=== PATIENT | male | born 1995 | race Caucasian/White ===

== ENCOUNTER 2023-12-05 23:10 | Inpatient (IN) | payer OTHER, SELFPAY ==
[2023-12-05 19:26] VITALS: BP 97/73
[2023-12-05 19:52] LABS: % Basophils 0.3 % (0-2); % Eosinophils 5.7 % (0-6); % Immature Granulocytes 0.3 % (0-0.5); % Lymphocytes 25.6 % (20.5-51.1); % Monocytes 8.1 % (1.7-9.3); Absolute Eosinophils 0.4 10^3/uL (0-0.7); Absolute Lymphocytes 1.8 10^3/uL (1.2-3.4); Absolute Monocytes 0.6 10^3/uL (0.1-0.6); Absolute Neutrophils 4.2 10^3/uL (1.4-6.5); Hematocrit 37.4 % (39.0-52.0); Hemoglobin 13.1 g/dL (13.0-18.0); Mean Corpuscular Hgb 29.7 pg (27.0-31.0); Mean Corpuscular Volume 84.8 fL (80.0-94.0); Mean Platelet Volume 9.5 fL (7.4-10.4); Nucleated Red Blood Cells % 0 % (-); Platelet Count 224 10^3/uL (130-400); Red Blood Cell Count 4.41 10^6/uL (4.70-6.10); Red Cell Dist. Width 12.4 % (11.5-14.5)
[2023-12-05 20:04] LABS: Lactic Acid 2.4 mmol/L (0.7-2.0)
[2023-12-05 20:16] LABS: ALT (SGPT) 15 U/L (0-50); AST (SGOT) 22 U/L (17-59); Alkaline Phosphatase 90 U/L (38-126); Blood Urea Nitrogen 7 mg/dl (9-20); Calcium 9.2 mg/dl (8.4-10.2); Carbon Dioxide 32 mmol/L (22-30); Chloride 94 mmol/L (98-107); Glucose 159 mg/dl (70-99); Potassium 3.8 mmol/L (3.5-5.1); Sodium 135 mmol/L (135-145); Total Bilirubin 0.5 mg/dl (0.2-1.3); Total Protein 6.5 g/dl (6.3-8.2); eGFR > 60.00
[2023-12-05 20:17] LABS: Troponin I < 0.012 ng/ml
[2023-12-05 20:41] VITALS: BMI 20.3
--- NOTE | 2023-12-05 20:42 | EDRN ---
Pt says he has a wound on his left leg that started last night or the day before. Pt says the wound is from his drug use - pt smokes oxycontin then scratches his leg and says it is numb so he cannot tell how much he is scratching it which causes
wounds. Last used oxycontin this morning. Pt also uses PCP and heroin - last used both 'weeks ago.' Pt says he started with cp and sob this morning while he was watching TV after using oxycontin. Pt says cp comes and goes as well as the sob. Pt
has 'minor' abd pain when he stands up and moves around. No n/v, fever/chills/cough, urinary symptoms. Pt declines help with drug addiction, only here to have wound examined.
[2023-12-05 20:53] VITALS: BP 98/64
[2023-12-05 21:00] VITALS: BP 108/63
--- NOTE | 2023-12-05 21:00 | EDRN ---
Called pharmacy for invanz
--- NOTE | 2023-12-05 21:09 | ED.GENMED ---
History of Present Illness
General
Chief Complaint: Swelling
Source: patient
Exam Limitations: none
Time Seen by Provider: 12/05/23 20:51
Nursing documentation reviewed up to this point in time: agreed with
Travel History
Have you had any contact with someone who has COVID-19?: No
Do you have any symptoms of coronavirus? Fever > 100 degrees, chills, cough, shortness of breath, sore throat, loss of taste or smell, muscle aches, or headache?: No
History of Present Illness
History of Present Illness:
Patient with history of chronic opioid use and previous skin infection, presents to ED secondary to 1 week history of recurrent left lower leg redness/swelling/pain, along with decreased appetite. Denies fever or chills. Denies nausea or vomiting.
Denies diarrhea. Denies headache. Denies dizziness. Denies direct trauma.
Past History
Past History
ED Past Medical History: Psychiatric (Bipolar disorder, alcohol abuse, Depression, Anxiety) and Other (Polysubstance drug abuse)
ED Past Surgical History: Other (myringotomy tubes)
Social History
Tobacco: Former smoker
Alcohol: Former
Drug: Narcotics and Other (Amphetamines, fentanyl, PCP)
Personal: Single
Living: with family
Employment: Not employed
Family History
Family History: Other (Psychiatric illness.)
Review of Systems
Review of Systems
All Other Systems: ROS reviewed and negative except as documented in HPI and ROS
Constitutional: Reports no symptoms
EENT: Reports no symptoms
Respiratory: Reports no symptoms
Cardiac: Reports no symptoms
ABD/GI: Reports no symptoms
: Reports no symptoms
Musculoskeletal: Reports no symptoms
Skin: Reports other (Leg redness with rash)
Neurological: Reports no symptoms; Denies dizzy or headache
Phy Exam
Physical Exam
Physical Exam:
Physical Exam
General: mild distress, not acutely ill. afebrile
Head: nc/at. eomi
Neck: supple. no meningeal signs.
Heart: tachycardic, no murmur. equal radial pulses.
Lungs: no acute respiratory distress. clear bilaterally
Abdomen: normal bowel sounds. not tender.
Neuro: alert and oriented. no focal neurological deficits
Skin: LLE: multiple ulcerated lesions noted with surrounding erythema/warm, with linear streaking upto thigh.
Psychiatric: well kept. interactive and cooperative
Extremities: no edema. no calf tenderness.
Course
Orders/Labs/Results
Orders:
Orders
12/05/23 19:29
Electrocardiogram (*1) Urgent
Reason for Study: Tachycardia
EKG- Treatment ONCE
12/05/23 19:38
Complete Blood Count/With Diff Urgent
Lactic Acid Urgent
Troponin I Urgent
12/05/23 19:39
Comprehensive Metabolic Panel Urgent
Blood Culture Urgent
ROMMEL Source: Blood/Venous
Specimen Description:
12/05/23 20:55
Piperacillin/Tazo 3.375 Gram [Zosyn] 3.375 gram in 50 ml IV NOW
12/05/23 20:56
0.9% Sodium Chloride 1000 ml [Nss] 1,000 ml IV BOLUS
12/05/23 21:10
Blood Culture Urgent
ROMMEL Source: Blood/Venous
Specimen Description:
12/05/23 21:15
Ertapenem [Invanz] 1,000 mg 0.9% Sodium Chloride [Nss] 50 ml IV ONCE
12/05/23 21:36
Admit/Transfer Patient As Directed
Co-Sign Provider:
Level of Care: Inpatient admission
Assign to:: Telemetry
Physician / Group: Marcus juan
Diagnosis: sepsis
Reason for Telemetry: Other
Other Reason for Telemetry: sepsis
Date to Stop Telemetry: 12/07/23
Time to Stop Telemetry: 11:00
Reason for Hospitalization: sepsis
Expected length of stay greater than two midnights?: Yes
ELOS- Estimated Length of Stay in days: 3
I certify the patient meets the requirements for IP care: Yes
12/05/23 21:37
Code Status As Directed
Resuscitation Status: Full Code
12/06/23 00:05
0.9% Sodium Chloride 1000 ml [Nss] 1,000 ml IV 125 mls/hr
Acetaminophen [Tylenol] 650 mg PO Q4HPRN PRN
Buprenorphine [Subutex] 8 mg SL PRN PRN
Linezolid 600 mg/300 ml [Zyvox 600 mg] 300 ml IV Q12H
Nicotine [Nicoderm Transdermal] 21 mg TRANSDERM DAILY
Tizanidine [Zanaflex] 2 mg PO Q6HPRN PRN
12/06/23 00:05
Electrocardiogram (*1) Routine
Reason for Study: QTc Monitoring
Comment: if not already done in ED
Consult Notification Routine
Specialty to Notify: Infectious Disease
Date consulting provider notified: 12/06/23
Time consulting provider notified: 06:58
Notified:: Provider
Comment: TT 7am
INFECTIOUS DISEASE CONSULT Routine
Consulting Provider: Jai Ferris
Was physician already notified: No
Reason for consult: wound infection from drug abuse
Activity As Directed
Activity Level: Out of Bed-Early Mobility
Clinical Opioid Withdrawal Scale (COWS) .PRN
Intake/ Output As Directed
Frequency: Per unit guidelines
Vital Signs As Directed
Frequency: Per unit guidelines
DX Deep Vein Thrombosis Video Routine
12/06/23 00:43
Lactic Acid Q4H
12/06/23 03:27
Fentanyl, Urine Urgent
12/06/23 05:45
Complete Blood Count/No Diff IN AM
12/06/23 Breakfast
Regular
At Your Request: Full Participation
Piperacillin/Tazo 3.375 Gram [Zosyn] 3.375 gram in 50 ml IV Q6H
12/06/23 08:00
Buprenorphine [Subutex] 4 mg SL ONCE PRN PRN
Buprenorphine [Subutex] See Dose Instructions SL ONCE ONE
12/06/23 18:00
Enoxaparin Sodium [Lovenox] 40 mg SC QPM
12/07/23 06:00
Basic Metabolic Panel IN AM
Complete Blood Count/No Diff IN AM
12/07/23 08:00
Buprenorphine [Subutex] See Dose Instructions SL DAILY
12/07/23 11:00
DC Protocol for Telemetry ONCE
12/08/23 06:00
Basic Metabolic Panel IN AM
Complete Blood Count/No Diff IN AM
12/09/23 06:00
Basic Metabolic Panel IN AM
Complete Blood Count/No Diff IN AM
12/10/23 06:00
Basic Metabolic Panel IN AM
Complete Blood Count/No Diff IN AM
Abnormal Lab Results
12/05/23 12/05/23
19:38 19:39
RBC 4.41 L 10^6/uL
(4.70-6.10)
Hct 37.4 L %
(39.0-52.0)
Chloride 94 L mmol/L
(98-107)
Carbon Dioxide 32 H mmol/L
(22-30)
BUN 7 L mg/dl
(9-20)
Glucose 159 H mg/dl
(70-99)
Lactic Acid 2.4 H mmol/L
(0.7-2.0)
12/05/23 19:38
12/05/23 19:39
Vital Signs
Initial and Last Documented VS:
Initial Vital Signs
Temp
97.7 F
02/16/24 19:25
Last Documented Vital Signs
Temp Pulse Resp BP Pulse Ox
98.1 F 116 18 115/63 99
12/06/23 07:55 12/06/23 07:55 12/06/23 07:55 12/06/23 07:55 12/06/23 07:55
MDM/Problems Addressed
MDM/Problems Addressed:
History and exam concerning for left leg cellulitis, with concern for development of bacteremia, with history of drug abuse. Patient will be admitted for IV antibiotics and IV fluids.
Blood culture pending. Invanz administered secondary to allergy to vancomycin.
*Critical Care Note
Total Time (30-74mins, 75-104mins- exclusive of procedures): Not Applicable
ED Attending Note
-
Portions of this chart may have been created with voice recognition software.� Occasional wrong word or��sound alike� substitutions may have occurred due to the inherent limitations of voice recognition software.
Discharge Plan
Departure
Patient Disposition: Admit
Date of Disposition: 12/05/23
Time of Disposition: 21:12
Admit to: Telemetry
Presentation/result/management discussed w/ accepting MD/DO: Hospitalist
Discharge Problem:
Cellulitis of leg
Interventions
Interventions:
*Risk Screen - Suicide Last Done: 12/06/23 00:48
*General Assessment Last Done: 12/05/23 19:25
*Neglect/Abuse Screening Last Done: 12/05/23 20:41
ED- Fall Risk Assessment Last Done: 12/05/23 23:42
*ED COVID-19 Vaccine History Last Done: 12/05/23 19:25
*Nursing Disposition Last Done: 12/05/23 23:42
ED- Cardiac Assessment Last Done: 12/05/23 20:53
ED- Pulmonary Assessment Last Done: 12/05/23 20:53
ED-Skin Assessment Last Done: 12/05/23 20:53
Discharge Date and Time
Discharge Date/Time: 12/05/23 23:42
[2023-12-05] MEDS: NSS 1000 IV (21:10)
--- NOTE | 2023-12-05 21:13 | HPS.HSE ---
Addendum entered and electronically signed by Marcus Castañeda DO 12/06/23 01:12:
I saw and examined the patient.
The TABLEAU DEVELOPER's note was reviewed and I agree with the note.
28[facility]/Anxiety/Depression, Polysubstance abuse presents to ER with 1 week of left leg swelling/redness/pain. Pt also reports heart palpitation. Denies IVDA. Denies past history of endocarditis or bacteremia. Hx MRSA wounds in past
noted. He adamantly denies any interest in quitting drugs with mother present at bedside. Reports snorting/skin popping PCP, Fentanyl, GHB, Benzodiazepines. Denies fever, chills, dizziness/LH, wheezing, cough, abd pain, n/v/d/c.
Physical Exam
General:�Chronically ill appearing. No apparent distress.
HEENT:�Normocephalic, Dry MM, and Atraumatic
Respiratory:�Clear, no w/r/r.
Cardiac:�+S1/S2, no m/r/g
GI:�Soft, Non Tender, Non Distended and Normal Bowel Sounds; No Organomegaly
Skin:�Right upper arm wound. RLE wound. LLE erythematous wound with TTP.
Neuro:�AO x 3 and Nonfocal/grossly intact
Psych:�Anxious
Sepsis 2/2 LLE Cellulitis
- +tachycardia, Hypotension (BP 95/62), LA 2.4. Tmax 98.8
- S/p 1LNS in ER. Continue fluids per sepsis protocol. Trend LA
- Vancomycin allergy noted
- S/p Ertapenem/Zosyn in ER. Will change to linezolid and zosyn. Hx MRSA wounds in past. No prior known bacteremia/endocarditis
- Follow up Blood Cultures
- Consult ID and Wound Care
Polysubstance Abuse
- Reports snorting/skin popping PCP, Fentanyl, GHB, Benzodiazepines
- Urine Drug Screen pending
- opiates protocol. May require prn benzos, monitor closely with COWS
- Pt is adamantly against quitting
Tobacco Abuse
- Nicotine patch ordered
Hx Bipolar/depression/anxiety - not on any prescribed meds
�
Original Note:
Family Physician
-
Family Physician:
Chief Complaint
-
left LE cellulitis
History of Present Illness
Patient with history of chronic opioid use and previous skin infection, presents to ED secondary to 1 week history of recurrent left lower leg redness/swelling/pain, along with decreased appetite.� Denies fever or chills.� Denies nausea or
vomiting.� Denies diarrhea.� Denies headache.� Denies dizziness.� Denies direct trauma. as per mom, he felt palpitation. he snorts opoids, his last dose was this morning. he also uses meth, he used it in the morning.
patient received iv ertapenem and Zosyn in ER. admitting for further management.
Medical History
Past Medical History
Past Medical History: Reports Other
Additional Past Medical History:
bipolar disorder
depression
alcohol abuse
anxiety
polysubstance abuse
Past Surgical History: Reports Other
Additional Past Surgical History:
myringotomy
Social History
Tobacco: Smoker (1 pack a day)
Alcohol: None
Drug: Other (snorts opoids, meth)
Living: With Family
Family History
Family History: Not pertinent
Allergies / Home Medications
Allergies reflects when Allergies were last updated in [employer] ([employer]).
Home Medications with original date entered in [employer] ([employer])
Allergy/Medication List:
Allergies
Allergy/AdvReac Type Severity Reaction Status Date / Time
vancomycin Allergy Itching Verified 12/05/23 19:25
Home Medications
No Meds [No Current Medications] 12/05/23
Review of Systems
-
Constitutional: Reports No Symptoms
EENT: Reports No Symptoms
Respiratory: Reports No Symptoms
Cardiac: Reports No Symptoms
Abdomen/GI: Reports No Symptoms
: Reports No Symptoms
Musculoskeletal: Reports No Symptoms
Skin: Reports Other (left LE redness, swollen, tender, scabx, multiple wounds )
Neurological: Reports No Symptoms
Endocrine: Reports No Symptoms
Hematologic/Lymphatic: Reports No Symptoms
Psych: Reports No Symptoms
Physical Exam
Vital Signs
Vital Signs
Temp Pulse Resp BP Pulse Ox
97.7 F 103 12 108/63 98
12/05/23 19:25 12/05/23 21:00 12/05/23 20:53 12/05/23 21:00 12/05/23 19:26
Physical Exam
General: Well Developed, Well Nourished and No Apparent Distress
HEENT: NormoCephalic, Moist mucous membranes and Atraumatic
Respiratory: Clear
Cardiac: S1/S2 and Regular Rhythm; No Murmur or Rub
GI: Soft, Non Tender, Non Distended and Normal Bowel Sounds; No Organomegaly
Rectal: Deferred by Provider
Musculoskeletal: No Clubbing, No Cyanosis and No Edema
Skin: Rash and Other (left LE red, swollen, tender and wounds, multiple wounds generalized body)
Neuro: AO x 3 and Nonfocal/grossly intact
Psych: Calm
Laboratory Results
-
12/05/23 19:38
12/05/23 19:39
Laboratory Results
Lactic Acid 2.4 mmol/L (0.7-2.0) H 12/05/23 19:38
Total Bilirubin 0.5 mg/dl (0.2-1.3) 12/05/23 19:39
AST 22 U/L (17-59) 12/05/23 19:39
ALT 15 U/L (0-50) 12/05/23 19:39
Alkaline Phosphatase 90 U/L (38-126) 12/05/23 19:39
Troponin I < 0.012 ng/ml 12/05/23 19:38
Data Reviewed
-
Lab Data: Labs Reviewed by me
Impression/Plan
-
#LLE cellulitis from opioid use
-sepsis as evident by lactic 2.4, hypotension, tachycardia
-fluids continued
-iv linezolid and Zosyn
-blood culture sent from ER
-ID consulted
-Tylenol prn for fever, and pain
-trend lactic
#opioid dependence
-opiates protocol
#hxt of Bipolar/depression/anxiety
-not on meds
#Nicotine dependence
-nicotine patch
-encouraged smoking cessation
#DVT prophylaxis
-Lovenox
#CODE status
-full code
[2023-12-05] MEDS: INVANZ 60 MG IV (21:35)
[2023-12-05 22:00] VITALS: BP 95/62
[2023-12-05 23:00] VITALS: BP 106/61
[2023-12-06] VITALS (7 sets, daily range): BP systolic 94–117; BP diastolic 54–72; BMI 19.8
[2023-12-06] MEDS: NICODERM TRANSDERMAL 21 MG TRANSDERM ×2 (00:32→08:09)
[2023-12-06] MEDS: NSS 1000 IV ×3 (00:32→18:47)
[2023-12-06] MEDS: ZYVOX 600 MG 300 IV (01:21)
[2023-12-06 02:04] LABS: Lactic Acid 0.8 mmol/L (0.7-2.0)
[2023-12-06 03:48] LABS: Fentanyl, Urine Negative (Negative)
[2023-12-06] MEDS: ZOSYN 50 IV (05:58)
[2023-12-06 06:31] LABS: Hematocrit 32.2 % (39.0-52.0); Hemoglobin 11.2 g/dL (13.0-18.0); Mean Corp Hgb Conc. 34.8 g/dL (33.0-37.0); Mean Corpuscular Hgb 30.2 pg (27.0-31.0); Mean Corpuscular Volume 86.8 fL (80.0-94.0); Mean Platelet Volume 10.1 fL (7.4-10.4); Platelet Count 194 10^3/uL (130-400); Red Blood Cell Count 3.71 10^6/uL (4.70-6.10); Red Cell Dist. Width 12.4 % (11.5-14.5); White Blood Cell Count 6.1 10^3/uL (4.8-10.8)
[2023-12-06 06:51] LABS: Amphetamines Positive (Negative); Barbiturates Negative (Negative); Benzodiazepines Negative (Negative); Buprenorphine Negative (Negative); Cocaine Negative (Negative); Marijuana Negative (Negative); Methadone Negative (Negative); Methamphetamines Positive (Negative); Opiates Positive (Negative); Phencyclidine Negative (Negative); Tricyclic Antidepressants Negative (Negative)
[2023-12-06 06:56] LABS: ALT (SGPT) 13 U/L (0-50); AST (SGOT) 20 U/L (17-59); Albumin 3.2 g/dl (3.5-5.0); Alkaline Phosphatase 91 U/L (38-126); Blood Urea Nitrogen 4 mg/dl (9-20); Calcium 8.2 mg/dl (8.4-10.2); Carbon Dioxide 26 mmol/L (22-30); Chloride 105 mmol/L (98-107); Creatine Phosphokinase 60 U/L (55-170); Direct Bilirubin 0.4 mg/dl (0.0-0.4); Estimated Creatinine Clearance > 125 ml/min; Glucose 98 mg/dl (70-99); Potassium 3.7 mmol/L (3.5-5.1); Sodium 135 mmol/L (135-145); Total Bilirubin 0.4 mg/dl (0.2-1.3); Total Protein 5.4 g/dl (6.3-8.2); eGFR > 60.00
--- NOTE | 2023-12-06 09:42 | CON.ID ---
Consultation
-
Date/Time Consultation Requested: 12/06/2023 00:05
Date/Time Consultation Performed: 12/06/2023 09:16
Requesting Provider: Cynthia Richards
Performing Provider: Dr. Ferris
Reason for Consultation: Left lower extremity cellulitis
Chief Complaint / Past History
History of Present Illness
Jersey Schwartz is a 28-year-old male with a significant past medical history of substance abuse and bipolar disease being evaluated today. She was seen regarding left lower extremity cellulitis. History is obtained from chart review, along with
patient interview. Patient reports that approximately 1 week ago he began to have erythema and swelling of his left lower extremity in an area that he chronically scratches.. Time he was had an enlarging wound, and some leg swelling and erythema.
Ultimately the pain progressed to the point that he sought further medical care. [facility].
During this period of time he denies any fevers or chills. Headache, chest pain or shortness of breath. He denies any abdominal pain, nausea or vomiting. He notes no groin pain or swelling. Erythema is limited to the distal leg and the calf area.
He denies any IVDA, noting that he limits his drug use to smoking. He reports negative HIV testing in the past, but consents to testing today.
Past History
Additional Past Medical History:
Bipolar disease
Substance abuse
Anxiety/depression
Additional Past Surgical History:
Myringotomy tubes
Allergy History:
vancomycin Allergy (Verified 12/05/23 19:25)
Itching
Medications Reviewed: Yes
Current Antibiotics:
Zyvox
Zosyn
Social History
Tobacco: Former Smoker
Alcohol: Former
Drug: Other (Amphetamine, fentanyl, PCP)
Personal: Single
Living: With Family
Family History
Family History: Not Pertinent
Review of Systems
Vital Signs
Temp Pulse Resp BP Pulse Ox
98.1 F 116 18 115/63 99
02/17/24 07:55 12/06/23 07:55 12/06/23 07:55 12/06/23 07:55 12/06/23 07:55
Physical Exam
Physical Exam
Constitutional: No Acute Distress, Comfortable and Non-toxic
Eyes: No Conjunctival Hemorrhage and Sclera Anicteric
Cardiovascular: S1/S2; Negative S3/S4
Pulmonary: Clear; Negative Wheezes, Rales or Rhonchi
Gastrointestinal: Soft, Non Tender and Non Distended
Extremities: Edema (Left lower extremity) and Erythema (Left lower extremity); Negative Venous Insufficiency
Wound: Other (Left mid calf area with wound with dry crusting. Surrounding pustules noted on the skin. Mild erythema. Positive tenderness.)
Neurological: Awake and Alert
Psychological: Calm
Lab / Diagnostic Study Results
12/06/23 05:45
12/06/23 05:45
Abs Immat Gran (auto) 0.0 10^3/uL (0-0.05) 12/05/23 19:38
Absolute Neuts (auto) 4.2 10^3/uL (1.4-6.5) 12/05/23 19:38
Absolute Lymphs (auto) 1.8 10^3/uL (1.2-3.4) 12/05/23 19:38
Absolute Monos (auto) 0.6 10^3/uL (0.1-0.6) 12/05/23 19:38
Absolute Basos (auto) 0.0 10^3/uL (0-0.2) 12/05/23 19:38
Immature Gran % 0.3 % (0-0.5) 12/05/23 19:38
Neutrophils % 60.0 % (42.2-75.2) 12/05/23 19:38
Lymphocytes % 25.6 % (20.5-51.1) 12/05/23 19:38
Monocytes % 8.1 % (1.7-9.3) 12/05/23 19:38
Eosinophils % 5.7 % (0-6) 12/05/23 19:38
Basophils % 0.3 % (0-2) 12/05/23 19:38
Lactic Acid Cancelled 12/06/23 04:05
Microbiology Results
Micro:
12/06/23 03:27 MRSA Screen - Pending
Nose
12/05/23 21:10 Blood Culture - Pending
Blood/Venous
12/05/23 19:39 Blood Culture - Pending
Blood/Venous
Assessment / Plan
Left lower extremity cellulitis
Left lower extremity wound
Lactic acidosis; improved
Polysubstance abuse (opiates, oxycodone, amphetamine)
Bipolar disease
Anxiety/depression
Recommendations:
Continue antibiotic coverage. Transition linezolid to the oral route.
Change Zosyn to cefazolin 2 g IV every 8 hours.
I have cultured several of the pustules; await results.
Local care to the leg wound.
--- NOTE | 2023-12-06 10:57 | W.PN.HOSP.TC ---
Today's Communication/Plan
-
see bold
Assessment / Plan
Assessment / Plan
Gen: NAD, Awake and alert, NCAT
Eyes: EOMI, PERRLA, no scleral icterus.
Neck: supple.
CV: RRR, +S1/S2, no m/r/g.
Resp: CTAB, no rales, wheezes, or rhonchi.
Abd: +BS, soft, NT, ND
Skin: L leg cellulitis, L leg with scabs with some contained puss.
Neuro: CN 2-12 intact, non-focal.
Psych: Normal mood and affect.
Sepsis due to LLE Cellulitis
-cont IVFs
-cont linezolid and zosyn. h/o MRSA wounds in past. No prior known bacteremia/endocarditis.
-follow BCxs/WCx
-c/s ID and Wound Care
Polysubstance Abuse
- Reports snorting/skin popping PCP, Fentanyl, GHB, Benzodiazepines
- Urine Drug Screen with opioids, amphetamines
- cont COWS protocol (subutex)
- Pt is adamantly against quitting
Tobacco Abuse
- Nicotine patch ordered
Hx Bipolar/depression/anxiety -�not on any prescribed meds
Pt's parents updated at bedside.
FULL/Lovenox
Anticipated Discharge: 24 - 48 hours
Subjective/Interval History
-
Date of Service: December 06, 2023
Objective Data
-
Labs:
Laboratory Results
12/06/23
05:45
WBC 6.1
Hgb 11.2 L
Hct 32.2 L
Plt Count 194
Sodium 135
Potassium 3.7
Chloride 105
Carbon Dioxide 26
BUN 4 L
Creatinine 0.6 L
Glucose 98
Calcium 8.2 L
Total Bilirubin 0.4
AST 20
ALT 13
Alkaline Phosphatase 91
Vital Signs:
Vital Signs
Temp Pulse Resp BP Pulse Ox
98.1 F 116 18 115/63 99
12/06/23 07:55 12/06/23 07:55 12/06/23 07:55 12/06/23 07:55 12/06/23 07:55
I&O
12/05/23 12/06/23 12/07/23
06:59 06:59 06:59
Output Total 200 / 200
Balance -200 / -200
[2023-12-06] MEDS: ANCEF 10 IV ×2 (12:19→20:03)
--- NOTE | 2023-12-06 15:04 | CM ---
Patient seen bedside, initial assessment completed. Patient reports he resides with family in a single story home, denies DME, VN, or SNF. Patient reports he has no PCP, confirms [facility] in [place]. CM will continue to follow for
discharge planning needs.
Plan; home with family, no needs.
[2023-12-06] MEDS: LOVENOX 40 MG SC (18:47)
[2023-12-06] MEDS: ZYVOX 600 MG PO (20:03)
[2023-12-06] MEDS: SUBUTEX 8 MG SL (20:04)
[2023-12-07] MEDS: NSS 1000 IV (01:50)
[2023-12-07 03:55] VITALS: BP 114/77
[2023-12-07] MEDS: ANCEF 10 IV ×3 (04:28→20:56)
[2023-12-07 07:35] VITALS: BP 109/75
[2023-12-07 07:53] LABS: Hematocrit 33.1 % (39.0-52.0); Hemoglobin 11.4 g/dL (13.0-18.0); Mean Corp Hgb Conc. 34.4 g/dL (33.0-37.0); Mean Corpuscular Hgb 29.9 pg (27.0-31.0); Mean Corpuscular Volume 86.9 fL (80.0-94.0); Mean Platelet Volume 10.1 fL (7.4-10.4); Platelet Count 210 10^3/uL (130-400); Red Blood Cell Count 3.81 10^6/uL (4.70-6.10); Red Cell Dist. Width 12.7 % (11.5-14.5); White Blood Cell Count 5.1 10^3/uL (4.8-10.8)
[2023-12-07 08:05] LABS: Blood Urea Nitrogen 6 mg/dl (9-20); Calcium 8.3 mg/dl (8.4-10.2); Carbon Dioxide 26 mmol/L (22-30); Chloride 108 mmol/L (98-107); Estimated Creatinine Clearance > 125 ml/min; Glucose 81 mg/dl (70-99); Potassium 4.4 mmol/L (3.5-5.1); Sodium 138 mmol/L (135-145); eGFR > 60.00
[2023-12-07] MEDS: ZYVOX 600 MG PO ×2 (09:28→20:58)
[2023-12-07] MEDS: NICODERM TRANSDERMAL 21 MG TRANSDERM (09:28)
[2023-12-07] MEDS: SUBUTEX 8 MG SL (09:41)
[2023-12-07 11:20] VITALS: BP 114/74
--- NOTE | 2023-12-07 11:48 | W.PN.HOSP.TC ---
Today's Communication/Plan
-
Cont abx
ID Recs
await culture
Assessment / Plan
Assessment / Plan
Gen: NAD, Awake and alert, NCAT
Eyes: EOMI, PERRLA, no scleral icterus.
Neck: supple.
CV: RRR, +S1/S2, no m/r/g.
Resp: CTAB, no rales, wheezes, or rhonchi.
Abd: +BS, soft, NT, ND
Skin: L leg cellulitis, L leg with scabs with some contained puss.
Neuro: CN 2-12 intact, non-focal.
Psych: Normal mood and affect.
Sepsis due to LLE Cellulitis
-cont IVFs
-cont linezolid . Zosyn stopped and switched to cefazolin. h/o MRSA wounds in past. No prior known bacteremia/endocarditis.
-follow BCxs/WCx
-wound cx prelim with staph aureus
-c/s ID and Wound Care
Polysubstance Abuse
- Reports snorting/skin popping PCP, Fentanyl, GHB, Benzodiazepines
- Urine Drug Screen with opioids, amphetamines
- cont COWS protocol (subutex)
- Pt is adamantly against quitting
- Tolerated diet. Stop IVF.
Tobacco Abuse
- Nicotine patch ordered
Hx Bipolar/depression/anxiety -�not on any prescribed meds
Pt's parents updated at bedside.
FULL/Lovenox
Anticipated Discharge: > 48 hours
Subjective/Interval History
-
Date of Service: December 07, 2023
States improvement in erythema
tolerating diet
Objective Data
-
Labs:
Laboratory Results
12/07/23
06:41
WBC 5.1
Hgb 11.4 L
Hct 33.1 L
Plt Count 210
Sodium 138
Potassium 4.4
Chloride 108 H
Carbon Dioxide 26
BUN 6 L
Creatinine 0.6 L
Glucose 81
Calcium 8.3 L
Vital Signs:
Vital Signs
Temp Pulse Resp BP Pulse Ox
98 F 83 14 109/75 99
12/07/23 07:35 12/07/23 07:35 12/07/23 07:35 12/07/23 07:35 12/07/23 07:35
I&O
12/06/23 12/07/23 12/08/23
06:59 06:59 06:59
Intake Total 3730 / 3730
Output Total 200 / 200 3700 / 3700 500 / 500
Balance -200 / -200 30 / 30 -500 / -500
[2023-12-07] MEDS: SUBUTEX 4 MG SL (12:24)
[2023-12-07 15:35] VITALS: BP 114/65
--- NOTE | 2023-12-07 16:20 | CM ---
CM reviewed chart. Per Hospitalist note, continue antibiotics, ID and Wound Care consulted. CM will continue to follow for discharge planning needs.
Plan; home with family, watch for possible wound care needs.
[2023-12-07] MEDS: LOVENOX 40 MG SC (17:14)
[2023-12-07 20:18] VITALS: BP 131/77
[2023-12-07] MEDS: FLUSH (NSS) 2 FLUSH IV (20:57)
[2023-12-07] MEDS: BENADRYL 25 MG PO (23:16)
[2023-12-08 00:02] VITALS: BP 94/53
[2023-12-08 04:20] VITALS: BP 107/71
[2023-12-08] MEDS: FLUSH (NSS) 2 FLUSH IV (05:16)
[2023-12-08] MEDS: ANCEF 10 IV (05:16)
[2023-12-08 07:00] VITALS: BP 95/62
[2023-12-08 07:37] LABS: Hematocrit 35.3 % (39.0-52.0); Hemoglobin 12.6 g/dL (13.0-18.0); Mean Corp Hgb Conc. 35.7 g/dL (33.0-37.0); Mean Corpuscular Hgb 30.1 pg (27.0-31.0); Mean Corpuscular Volume 84.4 fL (80.0-94.0); Mean Platelet Volume 9.5 fL (7.4-10.4); Platelet Count 245 10^3/uL (130-400); Red Blood Cell Count 4.18 10^6/uL (4.70-6.10); Red Cell Dist. Width 12.5 % (11.5-14.5); White Blood Cell Count 4.8 10^3/uL (4.8-10.8)
[2023-12-08 08:59] LABS: Blood Urea Nitrogen 15 mg/dl (9-20); Calcium 8.9 mg/dl (8.4-10.2); Carbon Dioxide 28 mmol/L (22-30); Chloride 102 mmol/L (98-107); Estimated Creatinine Clearance > 125 ml/min; Glucose 87 mg/dl (70-99); Potassium 4.4 mmol/L (3.5-5.1); Sodium 139 mmol/L (135-145); eGFR > 60.00
[2023-12-08] MEDS: SUBUTEX 12 MG SL (10:22)
[2023-12-08] MEDS: ZYVOX 600 MG PO (10:22)
[2023-12-08] MEDS: NICODERM TRANSDERMAL 21 MG TRANSDERM (10:23)
--- NOTE | 2023-12-08 10:54 | WOUNDNOTE ---
[facility] RN note: Patient admitted with LLE cellulitis
See H&P for complete history-
PMH: Anxiety, depression, substance abuse,
Wound Location and type/assessment: Patient admitted with: LLE full-thickness excoriation from scratching. Patient reports scratching arms, legs, head and back when itchy from substance withdrawn. Denies using needles. LLE wound with small amount
of old drainage, yellow slough that was easily removed after cleaning. Patient reports this wound was a result from scratching. He has multiple scabbed areas on scalp, UE, LE and back. His right upper arm/shoulder also has an open abrasion from
scratching. Sacrum and heels intact.
Appetite: Good
Pressure redistribution devices in place: Versa Care Air, patient changes positions in bed
Plan: LLE wound cleaned with Vashe and medihoney applied. Silicone foam dressing maintained to right upper arm. Instructed patient on use of Aquaphor for scabbed areas. Will confirm orders with hospitalist and update nurse.
Updated care plan and will follow as needed. Patient agreeable to follow up at [facility] after discharge.
Recommend follow up at wound care center upon discharge.
[2023-12-08 11:00] VITALS: BP 111/75
--- NOTE | 2023-12-08 11:23 | W.PN.HOSP.TC ---
Addendum entered and electronically signed by Leroy Heck MD 12/08/23 12:47:
Case discussed with Dr. Ferris. Wound culture with MSSA. Patient to be discharged on 5 further days of Keflex.
Total time spent on d/c = 31 min. This included today's physical exam, progress note, review of laboratory and diagnostic data, preparation of discharge documents and prescriptions, and discussions about the pt's hospital course and discharge plan
with the patient and other medical accounting clerk involved in the patient's care.
Original Note:
Today's Communication/Plan
-
see bold
Assessment / Plan
Assessment / Plan
Gen: NAD, Awake and alert, NCAT
Eyes: EOMI, PERRLA, no scleral icterus.
Neck: supple.
CV: RRR, +S1/S2, no m/r/g.
Resp: CTAB, no rales, wheezes, or rhonchi.
Abd: +BS, soft, NT, ND
Skin: C/D/I dressing on medial distal leg. Otherwise L leg cellulitis has resolved, scabs on both LEs.
Neuro: CN 2-12 intact, non-focal.
Psych: Normal mood and affect.
12/05/23 21:10 Blood/Venous Blood Culture - Preliminary
No Growth in 48 hours- Final report to follow
12/05/23 19:39 Blood/Venous Blood Culture - Preliminary
No Growth in 48 hours- Final report to follow
12/06/23 09:54 Leg - Left Wound Culture - Preliminary
Staphylococcus aureus
12/06/23 09:54 Leg - Left Gram Stain - Preliminary
12/06/23 03:27 Nose MRSA Screen - Final
No Methicillin Resistant Staphylococcus aureus isolated.
Sepsis due to LLE Cellulitis:
-cont linezolid/cefazolin as per ID. h/o MRSA wounds in past. No prior known bacteremia/endocarditis.
-follow BCxs/WCx (WCx prelim staph aureus)
Polysubstance Abuse
- Reports snorting/skin popping PCP, Fentanyl, GHB, Benzodiazepines
- Urine Drug Screen with opioids, amphetamines
- cont COWS protocol (subutex)
- Pt is adamantly against quitting
Tobacco Abuse
- Nicotine patch ordered
Hx Bipolar/depression/anxiety -�not on any prescribed meds
Pt's parents updated at bedside.
FULL/Lovenox
Anticipated Discharge: Within 24 hours
Subjective/Interval History
-
Date of Service: December 08, 2023
No new complaints.
Objective Data
-
Labs:
Laboratory Results
12/08/23
07:13
WBC 4.8
Hgb 12.6 L
Hct 35.3 L
Plt Count 245
Sodium 139
Potassium 4.4
Chloride 102
Carbon Dioxide 28
BUN 15
Creatinine 0.7
Glucose 87
Calcium 8.9
Vital Signs:
Vital Signs
Temp Pulse Resp BP Pulse Ox
97.5 F 76 18 95/62 96
12/08/23 07:00 12/08/23 07:00 12/08/23 07:00 12/08/23 07:00 12/08/23 07:00
I&O
12/07/23 12/08/23 12/09/23
06:59 06:59 06:59
Intake Total 3730 / 3730 1800 / 1800
Output Total 3700 / 3700 600 / 600
Balance 30 / 30 1200 / 1200
[2023-12-08] MEDS: ANCEF IV (12:30)
--- NOTE | 2023-12-08 12:51 | W.PN.ID1 ---
Date of Service
Date of Service: December 08, 2023
Today's Communication
Narrow to Keflex for an additional 5 days.
Assessment / Plan
Left lower extremity cellulitis
Left lower extremity wound
Lactic acidosis; improved
Polysubstance abuse (opiates, oxycodone, amphetamine)
Bipolar disease
Anxiety/depression
Recommendations:
Cultures reviewed and revealed presence of MSSA.
Narrow antibiotics to cephalexin for an additional 5 days of therapy.
Advised patient to minimize scratching of the area to prevent further infection.
Chief Complaint
-: Cellulitis
Subjective / Review of Systems
Review of Systems: No Fever and No Chills
Vital Signs / Physical Exam
Vital Signs
Vital Signs
Temp Pulse Resp BP Pulse Ox
97.5 F 76 18 95/62 96
12/08/23 07:00 12/08/23 07:00 12/08/23 07:00 12/08/23 07:00 12/08/23 07:00
Physical Exam
Constitutional: No Acute Distress, Comfortable and Non-toxic
Eyes: Sclera Anicteric
Pulmonary: Non Labored
Wound: Other (Left lower extremity erythema decreased.)
Neurological: Awake and Alert
Psychological: Calm
Objective Data
Lab Data
Lab Results
12/08/23 07:13
12/08/23 07:13
Estimated Creat Clear > 125 ml/min 12/08/23 07:13
Lactic Acid Cancelled 12/06/23 04:05
Total Bilirubin 0.4 mg/dl (0.2-1.3) 12/06/23 05:45
AST 20 U/L (17-59) 12/06/23 05:45
ALT 13 U/L (0-50) 12/06/23 05:45
Alkaline Phosphatase 91 U/L (38-126) 12/06/23 05:45
Most recent labs reviewed.
Micro Results:
12/06/23 09:54 Wound Culture - Final
Leg - Left S aureus-Methicillin Sensitive
Gram Stain - Final
12/05/23 21:10 Blood Culture - Preliminary
Blood/Venous No Growth in 48 hours- Final report to follow
12/05/23 19:39 Blood Culture - Preliminary
Blood/Venous No Growth in 48 hours- Final report to follow
12/06/23 03:27 MRSA Screen - Final
Nose No Methicillin Resistant Staphylococcus aureus isolated.
Care Review
Plan reviewed with: Physician (Hospitalist)
--- NOTE | 2023-12-08 13:14 | WOUNDNOTE ---
RIGHT UPPER ARM
--- NOTE | 2023-12-08 13:25 | CM ---
Chart reviewed and patient to return to home today.
Plan; Home no needs.
--- NOTE | 2023-12-08 13:41 | W.DCSUMMARY ---
Discharge Summary
Discharge Data
Date of Admission: 12/05/23
Date of Discharge: 12/08/23
-
Pending Results: No
Hospital Course
Primary diagnoses:
Sepsis due to left lower extremity cellulitis
Secondary diagnoses:
Polysubstance abuse
Tobacco Abuse
Bipolar disorder
Depression
Anxiety
Consultants:
Infectious disease
Imaging:
None
Hospital course: 28-year-old male who presented with chief complaint of 1 week of left lower extremity swelling, erythema, and pain as outlined in H&P done on admission. Patient met sepsis criteria and was found to have left lower extremity
cellulitis. He was placed on broad-spectrum antibiotics including linezolid and cefazolin. Blood cultures were no growth and wound culture grew MSSA. The patient was transitioned to Keflex for 5 days at the time of discharge.
Polysubstance Abuse: The patient reported snorting/skin popping PCP, Fentanyl, GHB, Benzodiazepines. Urine Drug Screen showed opioids, amphetamines. Patient was placed on the COWS protocol (subutex). He was adamant against quitting.
Discharge Plan
-
Patient Disposition: Home (Routine Discharge)
Discharge Diagnosis/Procedures: Left leg cellulitis, polysubstance Abuse
Condition: Good
Diet: No restrictions
Activity: As tolerated
Driving Restrictions: As prior to admission
Activity Restrictions/Additional Instructions:
Wound Care Instructions Left LE wound- Clean with Vashe moistened gauze for 5 minutes. Apply honey gel, adaptic and silicone border foam. Change Q 48 hours and PRN for drainage or if loose.
Right Upper Arm- Clean with normal saline, apply silicone border foam. Change Q 3 days and PRN if loose or soiled
Aquaphor to scabbed areas on head, upper extremities and LE
Follow up at wound care center call for an appointment.
Referrals:
NONE,* [Family Provider] - in less than 1 week
Prescriptions:
New
cephalexin 500 mg Capsule
500 mg PO QID Qty: 20 0RF
Discharge Orders:
Discharge Patient (As Directed); Ordered 12/08/23
Ordered By: Leroy Heck
[2023-12-08] MEDS: HYDROPHOR 1 APPLIC TOPICAL (15:07)
[2023-12-08] MEDS: KEFLEX 500 MG PO (15:08)
== END 2023-12-08 16:08 | disposition home or self-care (01) | DRG 872 ==
LOC: 4 WEST ACU 23:10
PROVIDERS: Emergency Medicine; Registered Nurse; ADMITTING PHYSICIAN Internal Medicine; ATTENDING PHYSICIAN Internal Medicine; CONSULT PHYSICIAN Internal Medicine Infectious Disease; EMERGENCY PHYSICIAN Emergency Medicine
DX: A41.9 Sepsis, unspecified organism (principal); L03.116 Cellulitis of left lower limb; E87.20 Acidosis, unspecified; F31.9 Bipolar disorder, unspecified; F41.9 Anxiety disorder, unspecified
CPT/HCPCS: 80048; 80053; 80306; 80307; 82248; 82550; 83605; 84484; 85025; 85027; 87040; 87070; 87147; 87186; 87205; 93005; 96365; 96375; 99285; J1335; J2020

== ENCOUNTER → 2023-12-11 08:29 | Outpatient (REF) | payer OTHER, SELFPAY | LOC: WOUND 08:29 | PROVIDERS: ATTENDING PHYSICIAN Surgery; FAMILY PHYSICIAN Family Medicine | DX: L97.221 Non-pressure chronic ulcer of left calf limited to breakdown of skin (principal); F19.10 Other psychoactive substance abuse, uncomplicated | CPT/HCPCS: 97597; 99203 ==

== ENCOUNTER → 2023-12-18 08:41 | Outpatient (REF) | payer OTHER, SELFPAY | LOC: WOUND 08:41 | PROVIDERS: ATTENDING PHYSICIAN Surgery; FAMILY PHYSICIAN Family Medicine | DX: L97.221 Non-pressure chronic ulcer of left calf limited to breakdown of skin (principal); F19.10 Other psychoactive substance abuse, uncomplicated | CPT/HCPCS: 97597 ==

== ENCOUNTER 2024-11-17 19:30 | Emergency (ER) | payer OTHER, SELFPAY ==
--- NOTE | 2024-11-17 19:41 | ED.GENMED ---
ED Provider Triage
<Dominick Ross PA-C - Last Filed: 11/17/24 19:42>
-
Patient seen by provider in Triage?: Seen in Triage
Attestation: A medical screening examination has been initiated by a qualified medical provider. Based on the assessment performed at this time, it has been determined that an emergent medical condition may exist and the patient has been informed
that further medical evaluation and possible additional diagnostic testing may be needed.
HPI: Patient admitted with suicidal thoughts without plan or intent. Notes polysubstance abuse. No physical concerns at this time. Crisis evaluation ordered
GENERAL: Alert , in no apparent distress
EYE: No visual abnormalities.
NECK: Trachea midline
ENT: No visible abnormalities.
LUNGS: No acute respiratory distress
NEUROLOGICAL: Alert and oriented
SKIN: Skin intact. No visible changes.
MUSCULOSKELETAL: Moving extremities normally
PSYCH: Normal and appropriate interaction.
This is a medical evaluation conducted in person to initiate diagnostic evaluation and provide initial therapeutics. Please see further documentation by the treating clinician.
History of Present Illness
<Dominick Ross PA-C - Last Filed: 11/17/24 19:42>
General
Chief Complaint: Crisis Evaluation
Time Seen by Provider: 11/17/24 20:23
<Silas Dong DO - Last Filed: 11/17/24 23:24>
General
Source: patient and family
Exam Limitations: none
History of Present Illness
History of Present Illness:
29-year-old male who presents looking for help with substance abuse. Patient states he has been using Xanax. On arrival to the room family concerned that 'no one is helping him'. They are implying that he was being promised to help but no one had
anything for him. Of note, he has been to rehab 'close to 20 times'. Patient denies any current symptoms. He specifically denies suicidal ideation. Parents state that he has been on many different meds in the past.
Past History
<Dominick Ross PA-C - Last Filed: 11/17/24 19:42>
Past History
ED Past Medical History: Psychiatric (Bipolar disorder, alcohol abuse, Depression, Anxiety) and Other (Polysubstance drug abuse)
ED Past Surgical History: Other (myringotomy tubes)
Social History
Tobacco: Former smoker
Alcohol: Former
Drug: Narcotics and Other (Amphetamines, fentanyl, PCP)
Personal: Single
Living: with family
Employment: Not employed
Family History
Family History: Other (Psychiatric illness.)
Phy Exam
<Silas Dong DO - Last Filed: 11/17/24 23:24>
Physical Exam
Physical Exam:
CONSTITUTIONAL Vital signs reviewed, Patient alert and oriented to person, place and time. Well-appearing
HEAD atraumatic, normocephalic.
EYES eyelids normal to inspection, Extraocular muscles intact, Conjunctiva normal, Sclera normal.
NECK normal range of motion, Trachea midline, no jugular venous distention.
RESP no respiratory distress
BACK No obvious deformities
UPPER EXTREMITY Gross Range of motion normal, gross motor strength normal
LOWER EXTREMITY Gross range of motion normal, Gross motor strength normal
NEURO Speech normal, No focal motor deficits include, [place] coma scale 15, Memory normal, Cranial Nerves intact to screening exam. Gait normal
SKIN Skin warm, dry, and normal in color.
PSYCHIATRIC Patient oriented to person place and time, poor judgment, normal insight, normal affect
Course
<Dominick Ross PA-C - Last Filed: 11/17/24 19:42>
Orders/Labs/Results
Orders:
Orders
11/17/24 19:35
Crisis Consult Urgent
Reason for Consult: depression
11/17/24 20:34
Drug Screen, Urine [Urine Drug Abuse Screen] Urgent
11/17/24 22:58
Vital Signs- Treatment ONCE
Frequency: Once
Vital Signs
Initial and Last Documented VS:
Initial Vital Signs
Temp Pulse Resp BP Pulse Ox
98.7 F 115 18 144/105 100
11/17/24 19:42 11/17/24 19:42 11/17/24 19:42 11/17/24 19:42 11/17/24 19:42
Last Documented Vital Signs
Temp Pulse Resp BP Pulse Ox
98.7 F 115 18 144/105 100
11/17/24 19:42 11/17/24 19:42 11/17/24 19:42 11/17/24 19:42 11/17/24 19:42
<Silas Dong, DO - Last Filed: 11/17/24 23:24>
Orders/Labs/Results
Orders:
Orders
11/17/24 19:35
Crisis Consult Urgent
Reason for Consult: depression
11/17/24 20:34
Drug Screen, Urine [Urine Drug Abuse Screen] Urgent
11/17/24 22:58
Vital Signs- Treatment ONCE
Frequency: Once
Vital Signs
Initial and Last Documented VS:
Initial Vital Signs
Temp Pulse Resp BP Pulse Ox
98.7 F 115 18 144/105 100
11/17/24 19:42 11/17/24 19:42 11/17/24 19:42 11/17/24 19:42 11/17/24 19:42
Last Documented Vital Signs
Temp Pulse Resp BP Pulse Ox
98.7 F 115 18 144/105 100
11/17/24 19:42 11/17/24 19:42 11/17/24 19:42 11/17/24 19:42 11/17/24 19:42
<Silas Dong, DO - Last Filed: 11/17/24 23:24>
MDM/Problems Addressed
MDM/Problems Addressed:
Substance abuse
<Silas Dong DO - Last Filed: 11/17/24 23:24>
*Pulse Oximetry
Patient hypoxic: no
*Critical Care Note
Total Time (30-74mins, 75-104mins- exclusive of procedures): Not Applicable
Data Reviewed
Review of Other/Old Records Reveals: Discharge Summary (Discharge summary reviewed from November 2023)
Source: patient and family
Further Testing Considered But Not Given:
Consider labs the patient has no complaints or acute medical conditions
<Silas Dong DO - Last Filed: 11/17/24 23:24>
Patient Management
Escalation/DeEscalation of care consider admission/obs:
Seen by crisis. Placement arranged for 7 AM tomorrow and they will pick him up. Okay for discharge
ED Attending Note
<Dominick Ross PA-C - Last Filed: 11/17/24 19:42>
-
Portions of this chart may have been created with voice recognition software.� Occasional wrong word or��sound alike� substitutions may have occurred due to the inherent limitations of voice recognition software.
Discharge Plan
Departure
Patient Disposition: Home (Routine Discharge)
Date of Disposition: 11/17/24
Time of Disposition: 22:57
Patient with high blood pressure during this ER visit?: No
Discharge Problem:
Substance abuse
Instructions: Drug and Alcohol Abuse Information
Prescriptions:
No Action
cephalexin 500 mg Capsule
500 mg PO QID Qty: 20 0RF
Referrals:
UNKNOWN - PT DOES,NOT KNOW [Family Provider] -
Activity Restrictions/Additional Instructions:
Please follow-up with the facility tomorrow morning as planned. Return immediately for any changes in your status, major depression, suicidal ideation or any other concerns.
Interventions
Interventions:
*Risk Screen - Suicide Last Done: 11/17/24 19:42
*General Assessment Last Done: 11/17/24 19:42
*Neglect/Abuse Screening Last Done: 11/17/24 19:42
*ED COVID-19 Vaccine History Last Done: 11/17/24 19:42
Discharge Date and Time
Print Language: OMANI
[2024-11-17 19:42] VITALS: BP 144/105
== END 2024-11-17 23:00 | disposition home or self-care (01) ==
LOC: EMR 19:30
PROVIDERS: EMERGENCY PHYSICIAN Emergency Medicine
DX: F19.10 Other psychoactive substance abuse, uncomplicated (principal); Z87.891 Personal history of nicotine dependence
CPT/HCPCS: 99283